=== PATIENT | female | born 1990 | race Caucasian/White ===

== ENCOUNTER 2018-08-06 01:02 | Emergency (ER) | payer MEDICAID ==
[~2018-08-06] VITALS: Ht 165.1 cm; Wt 48.0 kg
[~2018-08-06 01:02] MED LIST: NO HOME MEDS
[2018-08-06] MEDS ORDERED: CefTRIAXone 1000mg IM Kit (w/lidocaine diluent) IM ONE (04:40)
[2018-08-06] MEDS ORDERED: AZIT-63 PO (04:56)
[2018-08-06 05:06] VITALS: BP 112/77
== END 2018-08-06 05:07 | disposition home or self-care (01) ==
LOC: ER 01:02
DX: J18.9 Pneumonia, unspecified organism (principal); K21.9 Gastro-esophageal reflux disease without esophagitis; F15.90 Other stimulant use, unspecified, uncomplicated; F17.200 Nicotine dependence, unspecified, uncomplicated; Z98.890 Other specified postprocedural states; Z88.2 Allergy status to sulfonamides
CPT/HCPCS: 71045; 96372; 99283; J0696

== ENCOUNTER 2022-06-06 12:18 | Emergency (ER) | payer MEDICAID ==
[~2022-06-06] VITALS: Ht 165.1 cm; Wt 79.5 kg
[2022-06-06 13:09] VITALS: BP 126/84
== END 2022-06-06 14:35 | disposition home or self-care (01) ==
LOC: ER 12:18
DX: Z00.00 Encounter for general adult medical examination without abnormal findings (principal); K21.9 Gastro-esophageal reflux disease without esophagitis; F15.20 Other stimulant dependence, uncomplicated; Z88.2 Allergy status to sulfonamides
CPT/HCPCS: 93005; 99283

== ENCOUNTER 2023-12-07 12:10 | Emergency (ER) | payer MEDICAID ==
[~2023-12-07] VITALS: Ht 162.6 cm; Wt 81.8 kg
[2023-12-07 12:12] VITALS: BP 116/66; PULSE 100; RESP 16; TEMP 98; O2SAT 98
[2023-12-07 13:18] LABS: BILIRUBIN,URINE NEGATIVE (Neg); CLARITY,URINE SLIGHTLY CLOUDY (Clear); COLOR,URINE STRAW (Yellow); GLUCOSE, URINE NEGATIVE (Neg); KETONES,URINE NEGATIVE (Neg); LEUKOCYTE ESTERASE ,URINE NEGATIVE (Neg); NITRITES, URINE NEGATIVE (Neg); OCCULT BLOOD,URINE MODERATE (Neg); PROTEIN,URINE NEGATIVE (Neg); UROBILINOGEN,URINE 0.2 E.U/dL (0.2-1.0)
[2023-12-07 13:22] LABS: UA COLLECTION TYPE VOIDED
[2023-12-07 13:25] LABS: BASOPHILS % (AUTO) 0.4 % (0-1); EOSINOPHILS % (AUTO) 0 % (0-6); HEMATOCRIT 43.8 % (35.0-45.0); LYMPHOCYTES # (AUTO) 2.1 X10'3 (1.1-4.8); LYMPHOCYTES % (AUTO) 22.9 % (21-51); MEAN CORPUSCULAR HEMOGLOBIN 30.7 PG (27.0-31.0); MEAN CORPUSCULAR HGB CONC 34.3 g/dL (33.0-36.5); MEAN CORPUSCULAR VOLUME 89.4 FL (78-98); MEAN PLATELET VOLUME 8.5 FL (7.4-10.4); MONOCYTES # (AUTO) 0.5 X10'3 (0-0.9); MONOCYTES % (AUTO) 5.2 % (2-12); NEUTROPHILS # (AUTO) 6.7 X10'3 (1.8-7.7); NEUTROPHILS % (AUTO) 71.5 % (42-75); PLATELET COUNT 244 X10'3 (140-440); RED CELL DISTRIBUTION WIDTH 13.7 % (11.5-14.5); WHITE BLOOD COUNT 9.4 X10'3 (4.5-11.0)
[2023-12-07 13:27] LABS: HCG SERUM QL POSITIVE
[2023-12-07 13:29] LABS: ALANINE AMINOTRANSFERASE 38 U/L (12-78); ALBUMIN 3.7 G/DL (3.4-5.0); ALBUMIN/GLOBULIN RATIO 0.9 (1.1-1.5); ALKALINE PHOSPHATASE 102 IU/L (46-116); ANION GAP 11 (8-16); BILIRUBIN,TOTAL 0.4 MG/DL (0.1-1.0); BLOOD UREA NITROGEN 10 MG/DL (7-18); BUN/CREATININE RATIO 18.9 (10.0-20.0); CALCIUM 8.8 MG/DL (8.5-10.1); CHLORIDE 102 MMOL/L (99-107); CREATININE 0.53 MG/DL (0.40-0.90); GLUCOSE 98 MG/DL (70-104); SODIUM 135 MMOL/L (135-145); TOTAL CARBON DIOXIDE 21.8 MMOL/L (24-32); TOTAL PROTEIN 7.7 G/DL (6.4-8.2); eCRCL 133 ML/MIN; eGFR > 90 ML/MIN
[2023-12-07 13:33] LABS: BACTERIA,URINE FEW /HPF (Neg); MUCUS STRANDS FEW /LPF (Neg); RBC,URINE 0-2 /HPF (0-2); SQUAMOUS EPITHELIAL CELL,UR MANY /LPF (FEW); WBC,URINE 0-4 /HPF (0-4)
[2023-12-07 13:56] LABS: ASPARTATE AMINO TRANSFERASE 31 U/L (10-37); BETA HCG,QUANTITATIVE 2725 mIU/ml; POTASSIUM 4.1 MMOL/L (3.5-5.1)
[2023-12-08] MEDS ORDERED: HYDR-3965 PO (15:03)
== END 2023-12-07 16:19 | disposition home or self-care (01) ==
LOC: ER 12:11
DX: O20.0 Threatened abortion (principal); Z3A.11 11 weeks gestation of pregnancy; F15.10 Other stimulant abuse, uncomplicated; K21.9 Gastro-esophageal reflux disease without esophagitis; Z88.2 Allergy status to sulfonamides; Z79.899 Other long term (current) drug therapy
CPT/HCPCS: 36415; 76801; 76817; 80053; 81001; 84702; 84703; 85025; 86900; 86901; 99284